=== PATIENT | female | born 1950 | race Caucasian/White ===

== ENCOUNTER 2025-03-12 09:51 | Outpatient (AMB) | payer MEDICARE, MEDICAID, SELFPAY ==
--- NOTE | 2025-03-12 10:07 | PD.GSCLVISIT ---
Vital Signs - [facility] 03/12/25 10:10 Height 1.55 m Height Method Stated Weight 78.925 kg Weight Measurement Method Estimated by Patient BMI 32.8 BP 109/68 Blood Pressure Source Automatic Cuff Blood Pressure Location Left Upper Arm Position Sitting Respiration 18 Pulse 71 Pulse Source Monitor Temp 97.2 F Temp Source Temporal Artery Scan Pulse Oximetry (%) 95 Oxygen Delivery Method Room Air Med/Allergies Allergies & Medications Allergies codeine Allergy (Verified 03/12/25 10:34) Sulfa (Sulfonamide Antibiotics) Allergy (Verified 03/12/25 10:34) MA Intake Visit Data Collection New Patient or Established: Established Patient (seen at [facility] within 3 years) Seen by Clinical Staff ONLY (RN/MA): No Pain Present Currently: No Pain Scale Used: Acosta-Kohli/Numerical Signal Inspector Required: No PCP or OBGYN visit in last 3 months: Yes Hx Now: No Do You Feel Safe at Home: Yes Authorities Contacted: N/A Smoking Status Smoking Status: Never smoker Immunization / Flu Flu Vaccine in the Last 12 Months: No Flu Vaccine Exclusion Criteria: Refused by Patient Past Medical History Social History SMOKING STATUS: Smoking status: Never smoker HPI HPI Narrative 74F referred for history of cholelithiasis. The referral contained a note from the ER physician which stated that the gallbadder was difficult to visualize due to bowel gas, but that there were no signs of cholecystitis and pt reportedly has a history of cholelithiasis. Pt states she went to the ER for right lower quadrant pain (she points to her right inguinal region though daughter states that at the ER she was indicating the RUQ). Pt states the pain is steady and not necessarily affected by eating, does tend to improve after she has a BM although she has constipation generally. 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 and opted not to take any treatment PSHx: Denies Meds: No antiplt or anticoagulation Allergies: Codeine, sulfa Social hx: pt has begun using a wheelchair the past few weeks due to the pain in her affected hip Family hx: pt reports her father had colon CA and she has multiple relatives with breast and skin CA ROS Review of Systems Systems Reviewed: All systems reviewed, normal except as documented Objective/Exam General General Appearance: alert, cooperative and well groomed Resp Respiratory exam: Absent respiratory distress Abdominal Abdominal exam: Present soft; Absent distention or tenderness Assessment & Plan Diagnosis / Problem List (1) Abdominal pain: Status: Acute Assessment & Plan: 74F with HTN, active cancer of the hip not taking any treatment referred for what pt describes as right lower quadrant pain, with a reported history of gallstones (no US was provided in the referral). Her symptoms are not consistent with biliary colic so I do not recommend cholecystectomy at this time. I explained that if she does have RUQ pain she could take a try of ursodiol, and if this is helpful that might make the case for cholecystectomy. (2) Encounter for colonoscopy in patient with family history of colon cancer: Status: Acute Assessment & Plan: Given her family history I did recommend colonoscopy and I explained the benefits/risks including bleeding, perforation requiring emergency surgery as well as the possibility of needing to abort prematurely for safety. All questions were answered and patient will follow-up in 6 weeks to discuss further Advanced Care Planning Advance care planning discussed with:: other Office Procedures GNS Level of Care Nursing/Assessment Patient Status: Established Patient Nursing Assessment/Reassesment: Medication Reconciliation, Update PMH in EMR and Vital Signs Coordination of Care: Complex Care and Chronic Disease 1-5, Consent,records obtained, informed consent, Education Simp Pt/Fam, Results/Orders obtained and Staff clarify orders Established Patient Charge Established Patient Point Assignment: 90 Established Patient Point Charge: EP Level 3 (80-115) Patient Portal Questionaires Social History Tobacco History Smoking Status: Never smoker Domestic Abuse History Do You Feel Safe at Home: Yes Review of Systems Report any current symptoms Only answer those that you have currently: Past Medical History Past Medical History Have you ever been diagnosed with any of the following:
[2025-03-12 10:10] VITALS: BP 109/68; PULSE 71; RESP 18; TEMP 36.2; O2SAT 95; BMI 32.8
== END 2025-03-12 10:51 | disposition home or self-care (01) ==
PROVIDERS: PCP Physician Assistant; Referring Provider Physician Assistant; Supervising Provider Surgery; Visit Provider Surgery
DX: R10.31 Right lower quadrant pain (principal); Z12.11 Encounter for screening for malignant neoplasm of colon; Z80.0 Family history of malignant neoplasm of digestive organs
CPT/HCPCS: 99213; G0463